=== PATIENT | female | born 1960 | race Caucasian/White ===

== ENCOUNTER 2018-11-02 09:04 | Emergency (ER) | payer OTHER, SELFPAY ==
[2018-11-02 09:08] VITALS: PULSE 88; RESP 18; TEMP 36.7; O2SAT 99; BMI 36.6
--- NOTE | 2018-11-02 09:52 | ED.VISSUMM ---
- ER Visit Summary Date of Service: 11/02/18 Chief Complaint: Elevated blood pressure History of Present Illness: The patient is a 57 F past medical or surgical history. Patient states she has not seen a doctor for years. She is typically very healthy. States she just has not felt right for the last several days. At times she feels lightheaded. She denies any stroke or TIA symptoms. No headache. No trouble using her arms or legs. She just does not feel like she is all there. She denies any nausea, vomiting, diarrhea or fever. No dysuria. No chest pain or shortness of breath. She recently took her blood pressures at home and they are running high and she decided to come into the ER today. She is not been on any blood pressure medications. Physical Examination: Well-appearing middle-age female. Afebrile. Pulse ox 9 9%. HEENT exam normal. No facial droop. Normal speech. Pupils round reactive light. Neck nontender. No lymphadenopathy. Lungs clear to auscultation bilaterally. Heart regular rate and rhythm no murmur. Abdomen soft and nontender. Normal bowel sounds. Moving all 4 extremities. Neurovascular intact. 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 Dorsi plantar flexion intact. Back nontender. Skin unremarkable. Neurologically she is awake and alert with no focal motor or sensory deficits. Fingertip to nose heel to adames within normal limits. NIH score is 0. She stood up and walked around the room without any difficulty. Negative Romberg. Test Results: CBC shows no acute abnormality with a white count of 4 and hemoglobin is 16. BMP shows no acute abnormality with a normal creatinine and gap. Glucose of 98. Emergency Department Course and Treatment: Patient with a completely normal exam and just does not feel well and has elevated blood pressure. P exam patient is doing well at 11:53 AM. Current blood pressure is 138/86. At this time I am not going to start her on blood pressure medication. I went to have her log her blood pressures and follow-up with a local primary care physician. Treatment Plan: Outpatient follow-up. Disposition: Discharge Impression: Elevated blood pressure This note was generated with [employer] dictation software. It may contain incorrect words, spelling, and punctuation that were not noted in review of the chart prior to signing ED Disposition - Plan for ED Patient: Chief Complaint: Hypertension
--- NOTE | 2018-11-02 09:56 | ED.DCSUM_ITS ---
- ER Visit Summary Date of Service: 11/02/18 Chief Complaint: Elevated blood pressure History of Present Illness: The patient is a 57 F past medical or surgical history. Patient states she has not seen a doctor for years. She is typically very healthy. States she just has not felt right for the last several days. At times she feels lightheaded. She denies any stroke or TIA symptoms. No headache. No trouble using her arms or legs. She just does not feel like she is all there. She denies any nausea, vomiting, diarrhea or fever. No dysuria. No chest pain or shortness of breath. She recently took her blood pressures at home and they are running high and she decided to come into the ER today. She is not been on any blood pressure medications. Physical Examination: Well-appearing middle-age female. Afebrile. Pulse ox 9 9%. HEENT exam normal. No facial droop. Normal speech. Pupils round reactive light. Neck nontender. No lymphadenopathy. Lungs clear to auscultation bilaterally. Heart regular rate and rhythm no murmur. Abdomen soft and nontender. Normal bowel sounds. Moving all 4 extremities. Neurovascular intact. 5 out of 5 tapering machine operator strength. Dorsi plantar flexion intact. Back nontender. Skin unremarkable. Neurologically she is awake and alert with no focal motor or sensory deficits. Fingertip to nose heel to adames within normal limits. NIH score is 0. She stood up and walked around the room without any difficulty. Negative Romberg. Test Results: CBC shows no acute abnormality with a white count of 4 and hemoglobin is 16. BMP shows no acute abnormality with a normal creatinine and gap. Glucose of 98. Emergency Department Course and Treatment: Patient with a completely normal exam and just does not feel well and has elevated blood pressure. P exam patient is doing well at 11:53 AM. Current blood pressure is 138/86. At this time I am not going to start her on blood pressure medication. I went to have her log her blood pressures and follow-up with a local primary care physician. Treatment Plan: Outpatient follow-up. Disposition: Discharge Impression: Elevated blood pressure This note was generated with [employer] dictation software. It may contain incorrect words, spelling, and punctuation that were not noted in review of the chart prior to signing ED Disposition - Plan for ED Patient: Chief Complaint: Hypertension
--- NOTE | 2018-11-02 10:01 | RAD_ITS ---
STUDY: X-RAY CHEST REASON FOR EXAM: Female, 57 years old. Fever. TECHNIQUE: PA and lateral views of the chest. COMPARISON: None. FINDINGS: The lungs are clear and expanded. Scattered calcified granulomas. There is no demonstrated pleural abnormality. Normal size heart. Normal mediastinum and marcus. Normal visualized pulmonary arteries. Normal visualized aortic arch and descending thoracic aorta. There are mild degenerative changes of the visualized thoracic spine. Normal visualized ribs, clavicles, and shoulders. There is no demonstrated abnormality of the visualized soft tissue structures of the upper abdomen. RAD/Chest PA and Lateral IMPRESSION: No acute abnormality is seen. Electronically Signed: Shukri Mccollum MD at 10:33 EST , Service support ,
[2018-11-02 10:18] LABS: Mean Corp Hgb Conc 33.3 g/gl (32-36); Mean Corpuscular Hgb 30.8 pg (27.0-32.0); Mean Corpuscular Volume 92.5 fL (81-99); Mean Platelet Vol. 10.7 fl (6.2-12.0); Platelet Count 192 K/mm3 (150-450); RBC Distribution Width CV 13.4 % (11.6-14.6); RBC Distribution Width SD 45.2 fl (35.1-43.9); Red Blood Count 5.19 M/mm3 (4.2-5.4); White Blood Count 4.5 K/mm3 (4.4-11.0)
[2018-11-02 10:21] LABS: Scan Indicated on CBC? Y/N NO
[2018-11-02 10:30] LABS: Anion Gap 7 (5-15); BUN 18 mg/dL (7-18); BUN/Creat Ratio 22.5 RATIO (10-20); Calcium,Total 8.9 mg/dL (8.5-10.1); Chloride 107 mmol/L (98-107); EST Glomerular Filtration Rate 79 mL/min (>60); Est Glom Filt Rate - Afr Amer 95 mL/min (>60); Estimated Creatinine Clearance 80.15 ml/min; Glucose 98 mg/dL (74-106); Potassium 3.9 mmol/L (3.5-5.1); Sodium Level 140 mmol/L (136-145)
[2018-11-02 10:37] VITALS: BP 158/88; PULSE 71; RESP 18; O2SAT 100
[2018-11-02 11:42] VITALS: BP 138/86; PULSE 72; RESP 13; O2SAT 98
--- NOTE | 2018-11-02 11:55 | ED.DEP ---
ED Disposition - Plan for ED Patient: Disposition: Home or Assisted Living Chief Complaint: Hypertension Instructions: ED Hypertension Poss Referrals: Gurpreet Martinez MD [STAFF PHYSICIAN] - 1 Week Additional Instructions: Log your blood pressures twice daily and follow-up with a local primary care physician to determine if they need to start her on blood pressure medications or they can continue to watch at this time.
== END 2018-11-02 12:11 | disposition home or self-care (01) ==
PROVIDERS: Emergency Provider Emergency Medicine
DX: I10 Essential (primary) hypertension (principal)
CPT/HCPCS: 71046; 80048; 85027; 99284